=== PATIENT | male | born 1990 | race Hispanic/Latino ===

== ENCOUNTER 2018-06-28 11:13 | Emergency (ER) | payer SELFPAY ==
[2018-06-28] MEDS ORDERED: Ketorolac Tromethamine 30 MG/ML VIAL ONE (13:42)
== END 2018-06-28 13:15 | disposition home or self-care (01) ==
LOC: ERS 11:13
DX: M54.31 Sciatica, right side (principal)
CPT/HCPCS: 96372; J1885